=== PATIENT | female | born 1960 | race African-American/Black ===

== ENCOUNTER 2017-10-03 06:55 | Emergency (ER) | payer BC ==
[~2017-10-03] VITALS: Ht 167.6 cm; Wt 95.0 kg
[~2017-10-03 06:55] MED LIST: HYDR-3533 PO; IBUP-238 PO
[2017-10-03 07:00] VITALS: BP 160/90; PULSE 98; RESP 20; TEMP 98.4; O2SAT 98
[2017-10-03] MEDS ORDERED: predniSONE 20 MG TAB PO ONE (08:15)
[2017-10-03] MEDS ORDERED: KETOROLAC TROMETHAMINE 60 MG/2 ML (IM) VIAL IM ONE (08:15)
--- NOTE | 2017-10-03 08:51 | PD ---
HPI Chief Complaint: Pain: Acute or Chronic Time Seen by Provider: 07:33 Travel History International Travel<30 days: No Contact w/Intl Traveler<30days: No Traveled to known affect area: No History of Present Illness HPI 57-year-old female presents emergency department with 2 day history of right-sided low back, hip, and leg pain. Patient denies any specific injury. Patient states is worse with ambulation and certain movements. She states no history of sciatica in the past. Patient denies weakness but does state she has an occasional feeling of numbness down the leg. It is worse with cough or sneeze. She is able to ambulate but it is painful. She denies any rash. Pain is currently 8 out of 10. She has no known drug allergies. PFSH Past Medical History Arthritis: Yes Cancer: No Cardiovascular Problems: No Diabetes: No Glaucoma: No Genitourinary: No Hepatitis: No Hiatal Hernia: No Hypertension: Yes (STRONG FAMILY HISTORY) Immune Disorder: No Musculoskeletal: No Neurologic: No Reproductive: No Respiratory: No Thyroid Disease: No ?: Not Tubal Ligation: Yes Past Surgical History Abdominal Surgery: No Cardiac Surgery: No Ear Surgery: No Endocrine Surgery: No Eye Surgery: No Genitourinary Surgery: No Gynecologic Surgery: Yes (PARTIAL HYSTERECTOMY TUBAL LIGATION) Oral Surgery: No Thoracic Surgery: No Other Surgery: Yes (PARTIAL HYSTERECTOMY, STILL HAS OVARIES) Social History Alcohol Use: Yes (OCC BEER) Tobacco Use: Yes (12 PPD) Substance Use: No Allergies-Medications (Allergen,Severity, Reaction): Coded Allergies: No Known Allergies (Verified Adverse Reaction, Unknown, 10/03/17) Reported Meds & Prescriptions Reported Meds & Active Scripts Active No Active Prescriptions or Reported Medications Review of Systems Except as stated in HPI: all other systems reviewed are Neg General / Constitutional: No: Fever Eyes: No: Visual changes HENT: No: Headaches Cardiovascular: No: Chest Pain or Discomfort Respiratory: No: Shortness of Breath Gastrointestinal: No: Abdominal Pain Genitourinary: No: Dysuria Musculoskeletal: Positive: Arthralgias, Limited ROM, Pain Skin: No Rash Neurologic: No: Weakness Psychiatric: No: Depression Endocrine: No: Polydipsia Hematologic/Lymphatic: No: Easy Bruising Physical Exam Narrative GENERAL: Moderately obese female in mild to moderate distress. SKIN: Warm and dry. Normal color. Normal turgor. No rash. HEAD: Atraumatic. Normocephalic. EYES: Pupils equal and round. No scleral icterus. No injection or drainage. ENT: No nasal bleeding or discharge. Mucous membranes pink and moist. Pharynx is clear. Airways patent NECK: Trachea midline. Supple and nontender. CARDIOVASCULAR: Regular rate and rhythm. RESPIRATORY: No accessory muscle use. Clear to auscultation. Breath sounds equal bilaterally. GASTROINTESTINAL: Abdomen soft, non-tender, nondistended. Hepatic and splenic margins not palpable. MUSCULOSKELETAL: Extremities without clubbing, cyanosis, or edema. No obvious deformities. Patient has positive pain with palpation of the right lower lumbar spine into the sciatic notch. She has positive straight leg raise pain at 40. She is able to however to dorsiflex and plantar flex without weakness. Deep tendon reflexes are intact bilaterally. NEUROLOGICAL: Awake and alert. No obvious cranial nerve deficits. Motor grossly within normal limits. Five out of 5 muscle strength in the arms and legs. Normal speech. PSYCHIATRIC: Appropriate mood and affect; insight and judgment normal. Data Data Last Documented VS Vital Signs Date Time Temp Pulse Resp B/P (MAP) Pulse Ox O2 Delivery O2 Flow Rate FiO2 10/03/17 07:00 98.4 98 20 160/90 (113) 98 Orders Orders Ketorolac Inj (Toradol Inj) (10/03/17 08:15) Prednisone (Deltasone) (10/03/17 08:15) [facility] Medical Decision Making Medical Screen Exam Complete: Yes Emergency Medical Condition: Yes Differential Diagnosis Sciatica. Sacroiliitis. Right hip bursitis. Narrative Course Patient is given 40 mg prednisone p.o. as well as 60 mg Toradol IV. Radiographic imaging not felt warranted at this time based on my history and physical. Patient will be continued on prednisone 20 mill grams twice daily 7 days. Patient also to take Flexeril 10 mg up to 3 times daily as needed for muscle spasm #15 Patient given tramadol 50 mg 1 every 6 hours as needed pain #20. Recommend patient follow-up with local primary care physician for Diagnosis Primary Impression: Right-sided low back pain with sciatica Qualified Codes: M54.41 - Lumbago with sciatica, right side Referrals: Primary Care Physician Patient Instructions: General Instructions, Lower Back Exercises (ED), Lumbar Radiculopathy (ED) Additional Instructions: Patient is given 40 mg prednisone p.o. as well as 60 mg Toradol IV. Radiographic imaging not felt warranted at this time based on my history and physical. Patient will be continued on prednisone 20 mill grams twice daily 7 days. Patient also to take Flexeril 10 mg up to 3 times daily as needed for muscle spasm #15 Patient given tramadol 50 mg 1 every 6 hours as needed pain #20. Recommend patient follow-up with local primary care physician for Med/Other Pt SpecificInfo: Prescription(s) given Scripts Tramadol (Tramadol) 50 Mg Tab 50 MG PO Q6H Y for PAIN, #20 TAB 0 Refills Prov: Gennaro Bedolla MD 10/03/17 Cyclobenzaprine (Flexeril) 10 Mg Tab 10 MG PO TID for Muscle Spasm, #15 TAB 0 Refills Prov: Gennaro Bedolla MD 10/03/17 Prednisone (Prednisone) 20 Mg Tab 20 MG PO BID for 7 Days, #14 TAB 0 Refills Prov: Gennaro Bedolla MD 10/03/17 Disposition: 01 DISCHARGE HOME Condition: Stable Vic Gonzalez Oct 03, 2017 08:51
[2017-10-03] MEDS ORDERED: PRED20 PO (08:52)
[2017-10-03] MEDS ORDERED: CYCL10TA PO (08:52)
[2017-10-03] MEDS ORDERED: TRAM50TA PO (08:52)
== END 2017-10-03 09:26 | disposition home or self-care (01) ==
LOC: NEPD 06:55
DX: M54.41 Lumbago with sciatica, right side (principal); F17.200 Nicotine dependence, unspecified, uncomplicated
CPT/HCPCS: 96372; 99283; J1885; J7512